=== PATIENT | female | born 1960 | race Caucasian/White ===

== ENCOUNTER 2016-08-23 19:20 | Inpatient (IN) | payer BC ==
[~2016-08-23] VITALS: Ht 162.6 cm; Wt 82.8 kg
[2016-08-23] MEDS ORDERED: MORPHINE SULFATE 4 MG/ML, 1ML ONE ×2 (20:28→22:14)
[2016-08-23] MEDS ORDERED: ONDANSETRON 2MG/ML, 2ML ONE (20:28)
[2016-08-23] MEDS ORDERED: POTASSIUM CHLORIDE 20 MEQ TAB.ER.PRT ONE (22:01)
[2016-08-23] MEDS ORDERED: OMNIPAQUE 350 MG/ML, 100ML BOTTLE ONE (22:30)
[2016-08-24] MEDS ORDERED: MORPHINE SULFATE 4 MG/ML, 1ML ONE ×3 (01:12→11:26)
[2016-08-24] MEDS ORDERED: CIPROFLOXACIN/PMX 400MG/200ML 200 ML ONE (01:12)
[2016-08-24] MEDS ORDERED: METRONIDAZOLE PMX 500MG/100ML 100 ML ONE (01:13)
[2016-08-24] MEDS ORDERED: ONDANSETRON 2MG/ML, 2ML ONE (01:13)
[2016-08-24] MEDS: METRONIDAZOLE PMX 500MG/100ML 100 ML IVPB SCH ×3 (02:00→20:21)
[2016-08-24] MEDS ORDERED: CEFTRIAXONE 2 GM in SODIUM CHLORIDE 0.9% 50 ML IVPB SCH (05:00)
[2016-08-24] MEDS: CEFTRIAXONE PMX 2GM/50ML 50 ML IVPB SCH (05:30)
[2016-08-24] MEDS: BUPROPION SR 100 MG TABLET PO SCH ×2 (08:15→21:00)
[2016-08-24] MEDS: ENOXAPARIN 40 MG/0.4 ML SQ SCH (08:15)
[2016-08-24] MEDS: NS + 20MEQ KCL 1,000 ML IV SCH ×3 (10:00→22:09)
[2016-08-24] MEDS: MORPHINE SULFATE 4 MG/ML, 1ML IVPush PRN ×2 (11:00→21:33)
[2016-08-24] MEDS ORDERED: PROCHLORPERAZINE 5 MG/ML, 2ML IV PRN (15:00)
[2016-08-24] MEDS ORDERED: PLEASE ENTER HEIGHT AND WEIGHT MC SCH (18:00)
[2016-08-24] MEDS ORDERED: PLEASE ENTER ALLERGIES MC SCH ×2 (18:00)
[2016-08-24] MEDS: ACETAMINOPHEN 325 MG TABLET PO PRN (18:19)
[2016-08-24 19:21] VITALS: BP_SYST 107; BP_SYST 147; BP_DIAS 64
[2016-08-25 02:18] VITALS: BP 91/56
[2016-08-25] MEDS: NS + 20MEQ KCL 1,000 ML IV SCH ×2 (02:21→03:52)
[2016-08-25] MEDS: ACETAMINOPHEN 325 MG TABLET PO PRN ×3 (02:37→10:51)
[2016-08-25 02:39] VITALS: BP 102/62
[2016-08-25] MEDS: METRONIDAZOLE PMX 500MG/100ML 100 ML IVPB SCH (04:00)
[2016-08-25] MEDS: CEFTRIAXONE PMX 2GM/50ML 50 ML IVPB SCH (05:09)
[2016-08-25 05:55] VITALS: BP 87/52
[2016-08-25 05:59] LABS: ASPARTATE AMINO TRANSFERASE 34 U/L (15-37); BLOOD UREA NITROGEN 4 mg/dL (7-18)
[2016-08-25] MEDS: ENOXAPARIN 40 MG/0.4 ML SQ SCH (06:40)
[2016-08-25] MEDS ORDERED: PANTOPROZOLE 40MG TABLET PO SCH (07:30)
[2016-08-25 07:40] VITALS: BP 107/65
[2016-08-25] MEDS: BUPROPION SR 100 MG TABLET PO SCH (07:50)
[2016-08-25] MEDS ORDERED: POTASSIUM CHLORIDE 20 MEQ TAB.ER.PRT PO ONE (11:00)
[2016-08-25] MEDS ORDERED: MAGNESIUM SULFATE PMX 4GM/100M 100 ML IV ONE (11:00)
[2016-08-25] MEDS ORDERED: MAGNESIUM OXIDE 400 MG TABLET PO SCH (11:00)
[2016-08-25 11:48] LABS: ASPARTATE AMINO TRANSFERASE 15 U/L (15-37); BLOOD UREA NITROGEN 17 mg/dL (7-18)
[2016-08-25] MEDS ORDERED: METR500T PO (14:34)
[2016-08-25] MEDS ORDERED: CEFD300C37 PO (14:34)
[2016-08-25] MEDS ORDERED: MAGN400T26 PO (14:34)
[2016-08-25] MEDS ORDERED: POTA20TA14 PO (14:34)
[2016-08-26 16:03] LABS: ASPARTATE AMINO TRANSFERASE 16 U/L (15-37); BLOOD UREA NITROGEN 13 mg/dL (7-18)
== END 2016-08-25 15:15 | disposition home or self-care (01) | DRG 372 ==
LOC: ED 19:20 → 3NW 08-24 02:45 → ED 08-24 13:39
PROVIDERS: ADMIT Internal Medicine; ATTEND Internal Medicine
DX: A04.7 Enterocolitis due to Clostridium difficile (principal); E44.0 Moderate protein-calorie malnutrition; F32.9 Major depressive disorder, single episode, unspecified; F41.9 Anxiety disorder, unspecified; E87.6 Hypokalemia; E83.42 Hypomagnesemia; E86.0 Dehydration; Z68.31 Body mass index [BMI] 31.0-31.9, adult
CPT/HCPCS: 36415; 70450; 74177; 80053; 81001; 83690; 83735; 84439; 84443; 85025; 87086; 87324; 87328; 87329; 89055; 96374; J0696; J1650; J3480; Q9967